=== PATIENT | female | born 1955 | race African-American/Black ===

== ENCOUNTER 2022-02-11 15:52 | Emergency (ER) | payer MEDICARE, MEDICAID ==
[~2022-02-11] VITALS: Ht 172.7 cm; Wt 100.7 kg
[2022-02-11] MEDS ORDERED: ACETAMINOPHEN 500 MG TAB PO ONE (16:30)
[2022-02-11 16:45] VITALS: BP 158/85
[2022-02-11] MEDS ORDERED: ACET-1080 PO (17:07)
== END 2022-02-11 17:15 | disposition home or self-care (01) ==
LOC: ER 15:52
DX: S52.202A Unspecified fracture of shaft of left ulna, initial encounter for closed fracture (principal); M17.11 Unilateral primary osteoarthritis, right knee; J45.909 Unspecified asthma, uncomplicated; K21.9 Gastro-esophageal reflux disease without esophagitis; I10 Essential (primary) hypertension; Z90.49 Acquired absence of other specified parts of digestive tract; W18.39XA Other fall on same level, initial encounter; Y93.89 Activity, other specified; Y92.89 Other specified places as the place of occurrence of the external cause; Y99.8 Other external cause status
CPT/HCPCS: 73110; 73562